=== PATIENT | male | born 1970 | race African-American/Black ===

== ENCOUNTER 2022-06-09 07:53 | Emergency (ER) | payer MEDICAID ==
[~2022-06-09] VITALS: Ht 162.6 cm; Wt 57.0 kg
[2022-06-09 08:05] VITALS: BP 160/75
[2022-06-09] MEDS ORDERED: CEFTRIAXONE SODIUM 1 G/VIAL IM ONE (09:00)
[2022-06-09] MEDS ORDERED: DOXY100T2 PO (09:00)
[2022-06-09] MEDS ORDERED: DOXYCYCLINE HYCLATE 100MG CAPSULE PO ONE (09:00)
[2022-06-12 04:07] LABS: NEISSERIA GONORRHOEAE NAA Positive (Negative)
== END 2022-06-09 09:30 | disposition home or self-care (01) ==
LOC: ER 07:53
DX: A54.01 Gonococcal cystitis and urethritis, unspecified (principal)
CPT/HCPCS: 87491; 87591; 96372; 99283; J0696

== ENCOUNTER 2022-08-22 19:14 | Emergency (ER) | payer MEDICAID ==
[~2022-08-22] VITALS: Ht 162.6 cm; Wt 57.0 kg
[~2022-08-22 19:14] MED LIST: DOXY100T2 PO
[2022-08-22] MEDS ORDERED: IBUP-2029 MT (23:26)
[2022-08-23 00:01] VITALS: BP 137/81
== END 2022-08-23 00:02 | disposition home or self-care (01) ==
LOC: ER 19:35
DX: M25.512 Pain in left shoulder (principal); J45.909 Unspecified asthma, uncomplicated
CPT/HCPCS: 73030; 99283

== ENCOUNTER 2022-09-15 17:49 | Emergency (ER) | payer MEDICAID ==
[~2022-09-15] VITALS: Ht 154.9 cm; Wt 59.0 kg
[~2022-09-15 17:49] MED LIST changes: +IBUP-2029 MT
[2022-09-15 17:54] VITALS: BP 158/98
[2022-09-15] MEDS ORDERED: IBUP-2029 MT (20:22)
== END 2022-09-16 00:26 | disposition home or self-care (01) ==
LOC: ER 18:37
DX: M25.512 Pain in left shoulder (principal); G89.29 Other chronic pain; F10.229 Alcohol dependence with intoxication, unspecified; Y90.0 Blood alcohol level of less than 20 mg/100 ml; J45.909 Unspecified asthma, uncomplicated
CPT/HCPCS: 99281

== ENCOUNTER 2023-01-13 21:36 | Emergency (ER) | payer MEDICAID ==
[~2023-01-13] VITALS: Ht 160 cm; Wt 61.5 kg
[2023-01-14 00:48] LABS: CHLORIDE 110 mEq/L (98-107)
[2023-01-14 00:57] LABS: ETHANOL BLOOD 224 mg/dL
[2023-01-14 01:01] LABS: CLARITY URINE CLEAR (CLEAR); COLOR URINE YELLOW (YELLOW); KETONES URINE TRACE (NEGATIVE); LEUKOCYTE ESTERASE URINE NEGATIVE (NEGATIVE); NITRITE URINE NEGATIVE (NEGATIVE); OCCULT BLOOD URINE TRACE (NEGATIVE); PH URINE 5.5 (4.5-8.0); PROTEIN URINE NEGATIVE (NEGATIVE); SPECIFIC GRAVITY URINE 1.011 (1.005-1.030); UROBILINOGEN URINE 0.2 E.U./dL (0.2-1.0)
[2023-01-14 01:13] LABS: *AMPHETAMINES SCREEN URINE NEGATIVE (NEGATIVE); *BARBITURATES SCREEN URINE NEGATIVE (NEGATIVE); *BENZODIAZEPINES SCREEN URINE NEGATIVE (NEGATIVE); *COCAINE SCREEN URINE NEGATIVE (NEGATIVE); CANNABINOID URINE SCREEN PRESUMTIVE POSITIVE (NEGATIVE); METHADONE URINE SCREEN NEGATIVE (NEGATIVE); OPIATES URINE SCREEN NEGATIVE (NEGATIVE); PHENCYCLIDINE URINE SCREEN NEGATIVE (NEGATIVE)
[2023-01-14 01:17] LABS: BASOPHILS % 0.5 % (0.0-2.0); HEMATOCRIT. 42.3 % (42.0-52.0); LYMPHOCYTES % 34.7 % (20.0-50.0); MEAN CORPUSCULAR HEMOGLOBIN 32.6 pg (28.0-32.0); MEAN CORPUSCULAR VOLUME 91.6 fL (80.0-94.0); MEAN PLATELET VOLUME 9.6 fl (7.4-10.4); MONOCYTES % 9.8 % (2.0-8.0); PLATELET 221 x1000/uL (130-400); RED BLOOD CELL COUNT 4.61 mill/uL (4.7-6.1); RED CELL DISTRIBUTION WIDTH 13.6 % (11.6-14.6)
[2023-01-14] MEDS ORDERED: NAPR-681 PO (03:40)
[2023-01-14 04:46] VITALS: BP 139/89
== END 2023-01-14 05:06 | disposition home or self-care (01) ==
LOC: ER 21:36
DX: F10.129 Alcohol abuse with intoxication, unspecified (principal); F12.10 Cannabis abuse, uncomplicated; M79.10 Myalgia, unspecified site; D17.9 Benign lipomatous neoplasm, unspecified; Y90.0 Blood alcohol level of less than 20 mg/100 ml
CPT/HCPCS: 36415; 70450; 80053; 80305; 80320; 81003; 85025; 99284; Z7610; G0480

== ENCOUNTER 2023-03-01 17:03 | Emergency (ER) | payer MEDICAID ==
[~2023-03-01] VITALS: Ht 160 cm; Wt 61.4 kg
[~2023-03-01 17:03] MED LIST changes: +NAPR-681 PO
[2023-03-01 17:15] VITALS: BP 181/109
[2023-03-01 18:07] LABS: BASOPHILS % 0.3 % (0.0-2.0); EOSINOPHILS % 1.5 % (0.0-5.0); HEMATOCRIT. 45.3 % (42.0-52.0); LYMPHOCYTES % 27.9 % (20.0-50.0); MEAN CORPUSCULAR HEMOGLOBIN 32.8 pg (28.0-32.0); MEAN CORPUSCULAR VOLUME 92.6 fL (80.0-94.0); MEAN PLATELET VOLUME 9.7 fl (7.4-10.4); MONOCYTES % 11.8 % (2.0-8.0); NEUTROPHILS % 58.5 % (40.0-76.0); PLATELET 165 x1000/uL (130-400); RED BLOOD CELL COUNT 4.89 mill/uL (4.7-6.1); RED CELL DISTRIBUTION WIDTH 13.8 % (11.6-14.6)
[2023-03-01 18:16] LABS: CHLORIDE 105 mEq/L (98-107)
[2023-03-01 22:49] LABS: CLARITY URINE CLEAR (CLEAR); COLOR URINE YELLOW (YELLOW); KETONES URINE NEGATIVE (NEGATIVE); LEUKOCYTE ESTERASE URINE NEGATIVE (NEGATIVE); NITRITE URINE NEGATIVE (NEGATIVE); OCCULT BLOOD URINE 1+ (NEGATIVE); PROTEIN URINE NEGATIVE (NEGATIVE); SPECIFIC GRAVITY URINE 1.004 (1.005-1.030); UROBILINOGEN URINE 0.2 E.U./dL (0.2-1.0)
[2023-03-01] MEDS ORDERED: DICYCLOMINE 10 MG/5 ML ORAL SYR PO STA (23:05)
[2023-03-01] MEDS ORDERED: VISCOUS LIDOCAINE 2% 15 ML UDC PO STA (23:05)
[2023-03-01] MEDS ORDERED: MAGNESIUM/ALUMINUM HYDROXIDE/SIMETHICONE 30ML UDC PO STA (23:05)
[2023-03-01] MEDS ORDERED: OMEP40CA20 MT (23:12)
== END 2023-03-01 23:29 | disposition home or self-care (01) ==
LOC: ER 17:03
DX: R10.9 Unspecified abdominal pain (principal); I10 Essential (primary) hypertension; J45.909 Unspecified asthma, uncomplicated
CPT/HCPCS: 36415; 80053; 81003; 84484; 85025; 93005; 99284

== ENCOUNTER 2023-03-21 05:27 | Emergency (ER) | payer MEDICAID ==
[~2023-03-21] VITALS: Ht 160 cm; Wt 54.5 kg
[~2023-03-21 05:27] MED LIST changes: +OMEP40CA20 MT
[2023-03-21 05:38] VITALS: BP 125/1; PULSE 98; RESP 16; TEMP 98.6; O2SAT 98
[2023-03-21] MEDS ORDERED: IBUP-2029 MT (09:20)
== END 2023-03-21 06:25 | disposition left against medical advice (07) ==
LOC: ER 05:27
DX: Z53.21 Procedure and treatment not carried out due to patient leaving prior to being seen by health care provider (principal)
CPT/HCPCS: 99281

== ENCOUNTER 2023-03-21 07:20 | Emergency (ER) | payer MEDICAID ==
[~2023-03-21] VITALS: Ht 160 cm; Wt 54.0 kg
[2023-03-21 07:36] VITALS: TEMP 98.5
[2023-03-21] MEDS ORDERED: IBUP-2029 MT (09:20)
[2023-03-21 09:30] VITALS: BP 125/42; PULSE 98; RESP 16
[2023-03-21] MEDS ORDERED: KETOROLAC 30MG/ML VIAL IM ONE (09:30)
== END 2023-03-21 10:26 | disposition home or self-care (01) ==
LOC: ER 07:20
DX: S43.402A Unspecified sprain of left shoulder joint, initial encounter (principal); J45.909 Unspecified asthma, uncomplicated; I10 Essential (primary) hypertension; X58.XXXA Exposure to other specified factors, initial encounter; Y93.89 Activity, other specified; Y92.89 Other specified places as the place of occurrence of the external cause; Y99.8 Other external cause status
CPT/HCPCS: 99283; 73030; 96372; J1885

== ENCOUNTER 2023-05-18 12:47 | Emergency (ER) | payer MEDICAID ==
[~2023-05-18] VITALS: Ht 170.2 cm; Wt 68.0 kg
[2023-05-18 12:50] VITALS: O2SAT 96
[2023-05-18] MEDS ORDERED: KETOROLAC 30MG/ML VIAL IM ONE (13:00)
[2023-05-18 13:33] LABS: BASOPHILS % 0.5 % (0.0-2.0); HEMATOCRIT. 49.4 % (42.0-52.0); HEMOGLOBIN. 17.5 g/dL (14.0-18.0); LYMPHOCYTES % 30.8 % (20.0-50.0); MEAN CORPUSCULAR HEMOGLOBIN 32.4 pg (28.0-32.0); MEAN CORPUSCULAR HGB CONC 35.4 g/dL (31.0-37.0); MEAN CORPUSCULAR VOLUME 91.6 fL (80.0-94.0); MEAN PLATELET VOLUME 9.5 fl (7.4-10.4); MONOCYTES % 8.9 % (2.0-8.0); NEUTROPHILS % 57.8 % (40.0-76.0); PLATELET 230 x1000/uL (130-400); RED BLOOD CELL COUNT 5.39 mill/uL (4.7-6.1); RED CELL DISTRIBUTION WIDTH 13.3 % (11.6-14.6); WHITE BLOOD COUNT 7.1 x1000/uL (4.5-11.0)
[2023-05-18 13:41] LABS: CHLORIDE 103 mEq/L (98-107); INDEX HEMOLYSI 1 (1-3); INDEX ICTERIC 1 (1-4); INDEX LIPEMIC 1 (1-3); POTASSIUM 3.5 mEq/L (3.5-5.1); SODIUM 139 mEq/L (136-145)
[2023-05-18 13:53] LABS: ALANINE AMINOTRANSFERASE 54 IU/L (13-61); ALBUMIN 3.8 g/dL (3.4-5.0); ASPARTATE AMINOTRANSFERASE 45 IU/L (15-37); BILIRUBIN TOTAL 0.8 mg/dL (0.1-1.0); CARBON DIOXIDE 25 mEq/L (21-32); CREATININE 1.2 mg/dL (0.6-1.3); ETHANOL BLOOD 234 mg/dL (-10); GLUCOSE 186 mg/dL (70-105); NT PRO B-TYPE NATRIURETIC PEP 76 pg/mL (5-125); PROTEIN TOTAL 8.2 g/dL (6.0-8.3); UREA NITROGEN BLOOD 11 mg/dL (7-21)
[2023-05-18 14:13] LABS: TROPONIN I HIGH SENSITIVITY 10 ng/L (<78)
[2023-05-18] MEDS ORDERED: OMEP40CA20 MT (14:19)
[2023-05-18 14:44] VITALS: BP 144/87; PULSE 198; RESP 16; TEMP 97.5
== END 2023-05-18 14:44 | disposition home or self-care (01) ==
LOC: ER 12:47
DX: K85.20 Alcohol induced acute pancreatitis without necrosis or infection (principal); I10 Essential (primary) hypertension; J45.909 Unspecified asthma, uncomplicated
CPT/HCPCS: 80053; 80320 ×2; 83880; 83690; 85025; 84484; 36415; 71045; 93005; 96372; 99285; J1885; G0480

== ENCOUNTER 2023-11-08 22:11 | Emergency (ER) | payer MEDICAID ==
[~2023-11-08] VITALS: Ht 160 cm; Wt 56.6 kg
[~2023-11-08 22:11] MED LIST changes: -DOXY100T2 PO; -IBUP-2029 MT; +LEVO-65 MT; -NAPR-681 PO
[2023-11-08 22:27] VITALS: BP 162/112; PULSE 112; RESP 16; TEMP 98.5; O2SAT 100
[2023-11-08 23:05] LABS: CLARITY URINE CLEAR (CLEAR); COLOR URINE YELLOW (YELLOW); GLUCOSE URINE NEGATIVE (NEGATIVE); KETONES URINE NEGATIVE (NEGATIVE); LEUKOCYTE ESTERASE URINE NEGATIVE (NEGATIVE); NITRITE URINE NEGATIVE (NEGATIVE); OCCULT BLOOD URINE TRACE (NEGATIVE); PH URINE 5.5 (4.5-8.0); PROTEIN URINE NEGATIVE (NEGATIVE); SPECIFIC GRAVITY URINE 1.005 (1.005-1.030); UROBILINOGEN URINE 0.2 E.U./dL (0.2-1.0)
[2023-11-08 23:10] LABS: BASOPHILS % 0.5 % (0.0-2.0); EOSINOPHILS % 2.3 % (0.0-5.0); HEMATOCRIT. 44.8 % (42.0-52.0); HEMOGLOBIN. 15.9 g/dL (14.0-18.0); LYMPHOCYTES % 30.1 % (20.0-50.0); MEAN CORPUSCULAR HEMOGLOBIN 32.3 pg (28.0-32.0); MEAN CORPUSCULAR HGB CONC 35.4 g/dL (31.0-37.0); MEAN CORPUSCULAR VOLUME 91.2 fL (80.0-94.0); MEAN PLATELET VOLUME 9.1 fl (7.4-10.4); MONOCYTES % 9.7 % (2.0-8.0); NEUTROPHILS % 57.4 % (40.0-76.0); PLATELET 214 x1000/uL (130-400); RED BLOOD CELL COUNT 4.92 mill/uL (4.7-6.1); RED CELL DISTRIBUTION WIDTH 13.1 % (11.6-14.6); WHITE BLOOD COUNT 9.6 x1000/uL (4.5-11.0)
[2023-11-08 23:27] LABS: ALANINE AMINOTRANSFERASE 47 IU/L (10-49); ALBUMIN 4.8 g/dL (3.2-4.8); ASPARTATE AMINOTRANSFERASE 52 IU/L (<34); BILIRUBIN TOTAL 0.7 mg/dL (0.1-1.0); CALCIUM 9.1 mg/dL (8.7-10.4); CARBON DIOXIDE 22 mEq/L (21-32); CHLORIDE 103 mEq/L (98-107); GLUCOSE 94 mg/dL (70-105); POTASSIUM 4.2 mEq/L (3.5-5.1); SODIUM 138 mEq/L (136-145); TROPONIN I HIGH SENSITIVITY 12 ng/L (3.0-53); UREA NITROGEN BLOOD 8 mg/dL (9-23)
[2023-11-08 23:28] LABS: BACTERIA URINE TRACE; RBC URINE 0-2 /hpf (0-2); SQUAMOUS EPITHELIAL CELL URINE RARE /lpf (RARE/1+); WBC URINE 0-2 /hpf (0-2)
[2023-11-09] MEDS: FAMOTIDINE 20MG TABLET PO ONE (00:42)
[2023-11-09] MEDS: KETOROLAC 30MG/ML VIAL IM ONE (00:42)
[2023-11-09] MEDS ORDERED: FAMO-135 MT (00:57)
== END 2023-11-09 01:23 | disposition home or self-care (01) ==
LOC: ER 22:11
DX: R07.89 Other chest pain (principal); R10.13 Epigastric pain; F10.20 Alcohol dependence, uncomplicated; I10 Essential (primary) hypertension; Y90.8 Blood alcohol level of 240 mg/100 ml or more
CPT/HCPCS: 80053; 81003; 80320; 83690; 85025; 84484; 36415; 71045; 93005; 99285; 96372; J1885; G0480

== ENCOUNTER 2023-12-12 05:15 | Emergency (ER) | payer MEDICAID ==
[~2023-12-12] VITALS: Ht 160 cm; Wt 59.0 kg
[~2023-12-12 05:15] MED LIST changes: +FAMO-135 MT
[2023-12-12 06:01] VITALS: O2SAT 96
[2023-12-12] MEDS ORDERED: DIPH25CA83 MT (06:36)
[2023-12-12] MEDS ORDERED: HYDR28.485 RC (06:36)
[2023-12-12 06:55] VITALS: BP 159/77; PULSE 73; RESP 18; TEMP 98.1
== END 2023-12-12 06:56 | disposition home or self-care (01) ==
LOC: ER 05:15
DX: R21 Rash and other nonspecific skin eruption (principal)
CPT/HCPCS: 99282

== ENCOUNTER 2024-01-28 04:11 | Emergency (ER) | payer MEDICAID ==
[~2024-01-28] VITALS: Ht 170.2 cm; Wt 65.0 kg
[~2024-01-28 04:11] MED LIST changes: +DIPH25CA83 MT; +HYDR28.485 RC
[2024-01-28] MEDS ORDERED: MORPHINE SULFATE 4 MG/ML INJ (FOR IV/IM USE) IM STA (04:16)
[2024-01-28] MEDS ORDERED: ONDANSETRON 4MG ODT PO STA (04:16)
[2024-01-28 04:25] VITALS: BP 134/87; PULSE 98; RESP 16; TEMP 98; O2SAT 98
[2024-01-28 04:35] LABS: CHLORIDE 104 mEq/L (98-107); POTASSIUM 3.6 mEq/L (3.5-5.1); SODIUM 139 mEq/L (136-145)
[2024-01-28 04:36] LABS: CARBON DIOXIDE 26 mEq/L (21-32)
[2024-01-28 04:41] LABS: CREATININE 0.8 mg/dL (0.6-1.3); GLUCOSE 115 mg/dL (70-105); UREA NITROGEN BLOOD 7 mg/dL (9-23)
[2024-01-28 04:44] LABS: INR 0.9; PROTHROMBIN TIME 10.4 sec (9.6-11.0)
[2024-01-28 05:03] LABS: BASOPHILS % 0.4 % (0.0-2.0); EOSINOPHILS % 0.3 % (0.0-5.0); HEMATOCRIT. 45.8 % (42.0-52.0); LYMPHOCYTES % 7.9 % (20.0-50.0); MEAN CORPUSCULAR HEMOGLOBIN 31.8 pg (28.0-32.0); MEAN CORPUSCULAR VOLUME 90.8 fL (80.0-94.0); MEAN PLATELET VOLUME 9.7 fl (7.4-10.4); MONOCYTES % 8.1 % (2.0-8.0); NEUTROPHILS % 83.3 % (40.0-76.0); PLATELET 262 x1000/uL (130-400); RED BLOOD CELL COUNT 5.04 mill/uL (4.7-6.1); RED CELL DISTRIBUTION WIDTH 13.8 % (11.6-14.6); WHITE BLOOD COUNT 14.2 x1000/uL (4.5-11.0)
[2024-01-28] MEDS ORDERED: MORPHINE SULFATE 4 MG/ML INJ (FOR IV/IM USE) IV ONE (05:15)
[2024-01-28] MEDS ORDERED: KETOROLAC 15MG/ML VIAL IV ONE (05:15)
[2024-01-28] MEDS ORDERED: SODIUM CHLORIDE 0.9% 1,000 ML IV ONE (05:15)
[2024-01-31] MEDS ORDERED: AMLO10TA80 MT (17:33)
== END 2024-01-28 05:42 | disposition left against medical advice (07) ==
LOC: ER 04:11 → EDBEDREQ 05:22 → ER 05:42
DX: R11.2 Nausea with vomiting, unspecified (principal); F12.10 Cannabis abuse, uncomplicated
CPT/HCPCS: 99284; 76705; 80048; 83690; 85025; 85610; 36415; J7030

== ENCOUNTER 2024-03-10 20:45 | Emergency (ER) | payer MEDICAID ==
[~2024-03-10] VITALS: Ht 160 cm; Wt 54.0 kg
[~2024-03-10 20:45] MED LIST changes: +AMLO10TA80 MT; -LEVO-65 MT
[2024-03-10 20:56] VITALS: BP 175/94; PULSE 96; RESP 14; TEMP 97.8; O2SAT 94
[2024-03-10] MEDS ORDERED: IBUP-2028 MT (22:26)
== END 2024-03-10 22:30 | disposition home or self-care (01) ==
LOC: ER 20:45
DX: M79.605 Pain in left leg (principal); I10 Essential (primary) hypertension
CPT/HCPCS: 73562; 73590; 99284; Z7610

== ENCOUNTER 2025-01-07 16:19 | Inpatient (IN) | payer MEDICAID ==
[~2025-01-07] VITALS: Ht 160 cm; Wt 58.1 kg
[2025-01-07] MEDS: SODIUM CHLORIDE 0.9% 1,000 ML IV ONE (16:59)
[2025-01-07] MEDS: FAMOTIDINE 20MG/2ML VIAL IV STA (16:59)
[2025-01-07] MEDS: ONDANSETRON HCL 4MG/2ML INJ IV STA (16:59)
[2025-01-07] MEDS: MORPHINE SULFATE 4 MG/ML INJ (FOR IV/IM USE) IV STA (16:59)
[2025-01-07 17:12] LABS: BASOPHILS % 0.3 % (0.0-2.0); DIFFERENTIAL COMMENT 0; EOSINOPHILS % 0.4 % (0.0-5.0); HEMATOCRIT. 48.7 % (42.0-52.0); HEMOGLOBIN. 17.5 g/dL (14.0-18.0); LYMPHOCYTES % 8.9 % (20.0-50.0); MEAN CORPUSCULAR HEMOGLOBIN 32.1 pg (28.0-32.0); MEAN CORPUSCULAR HGB CONC 35.9 g/dL (31.0-37.0); MEAN CORPUSCULAR VOLUME 89.5 fL (80.0-94.0); MEAN PLATELET VOLUME 9.6 fl (7.4-10.4); MONOCYTES % 8.8 % (2.0-8.0); NEUTROPHILS % 81.6 % (40.0-76.0); PLATELET 259 x1000/uL (130-400); RED BLOOD CELL COUNT 5.44 mill/uL (4.7-6.1); RED CELL DISTRIBUTION WIDTH 13.6 % (11.6-14.6); WHITE BLOOD COUNT 15.7 x1000/uL (4.5-11.0)
[2025-01-07 17:17] LABS: CHLORIDE 103 mEq/L (98-107); POTASSIUM 4.7 mEq/L (3.5-5.1); SODIUM 138 mEq/L (136-145)
[2025-01-07 17:18] LABS: CALCIUM 10.3 mg/dL (8.7-10.4); CARBON DIOXIDE 25 mEq/L (21-32)
[2025-01-07 17:23] LABS: CREATININE 0.8 mg/dL (0.6-1.3); GLUCOSE 121 mg/dL (70-105); INR 0.9
[2025-01-07 17:24] LABS: ETHANOL BLOOD < 10 mg/dL (<10); UREA NITROGEN BLOOD 17 mg/dL (9-23)
[2025-01-07 17:25] LABS: ALANINE AMINOTRANSFERASE 13 IU/L (10-49); ALBUMIN 4.7 g/dL (3.2-4.8); ASPARTATE AMINOTRANSFERASE 25 IU/L (<34); BILIRUBIN DIRECT 0.3 mg/dL (<=3.0); TROPONIN I HIGH SENSITIVITY 6 ng/L (3.0-53)
[2025-01-07 17:26] LABS: PROTEIN TOTAL 8.3 g/dL (6.0-8.3)
[2025-01-07] MEDS: MORPHINE SULFATE 4 MG/ML INJ (FOR IV/IM USE) IV NR (19:11)
[2025-01-07] MEDS: LABETALOL 5MG/ML 4ML INJ IV ONE (19:11)
[2025-01-07 21:54] LABS: CLARITY URINE CLEAR (CLEAR); COLOR URINE DARK YELLOW (YELLOW); GLUCOSE URINE NEGATIVE (NEGATIVE); KETONES URINE 1+ (NEGATIVE); LEUKOCYTE ESTERASE URINE NEGATIVE (NEGATIVE); NITRITE URINE NEGATIVE (NEGATIVE); OCCULT BLOOD URINE 2+ (NEGATIVE); PROTEIN URINE 2+ (NEGATIVE); SPECIFIC GRAVITY URINE 1.031 (1.005-1.030)
[2025-01-07 22:08] LABS: BACTERIA URINE TRACE; SQUAMOUS EPITHELIAL CELL URINE RARE /lpf (RARE/1+); WBC URINE 0-2 /hpf (0-2)
[2025-01-07 23:05] VITALS: BP 179/87; PULSE 60; RESP 17; TEMP 36.8
[2025-01-07 23:33] VITALS: BP 179/87; PULSE 60; RESP 18; TEMP 36.8; O2SAT 95
[2025-01-08] VITALS: BP 191/95; PULSE 56; RESP 18; TEMP 36.2; O2SAT 94
[2025-01-08] MEDS: LACTATED RINGERS 1,000 ML IV SCH (00:15)
[2025-01-08] MEDS ORDERED: ONDANSETRON HCL 4MG/2ML INJ IV PRN (00:15)
[2025-01-08 04:00] VITALS: BP 164/77; PULSE 56; RESP 20; TEMP 36; O2SAT 96
[2025-01-08] MEDS: MORPHINE SULFATE 2 MG/ML INJ (NOT FOR IM USE) IV PRN (06:24)
[2025-01-08] MEDS: MEROPENEM 1G/100ML 100 ML IV SCH (06:43)
[2025-01-08 08:00] VITALS: BP 173/79; PULSE 68; RESP 18; TEMP 36.6; O2SAT 96
[2025-01-08] MEDS: PANTOPRAZOLE SODIUM 40 MG/VIAL IV SCH (10:14)
[2025-01-08] MEDS: ENOXAPARIN 40MG/0.4ML SYR SUBCUT SCH (10:14)
[2025-01-08] MEDS ORDERED: NALOXONE HCL 0.4MG/ML VIAL IV PRN (11:15)
[2025-01-08] MEDS: AMLODIPINE 10MG TABLET PO SCH (11:41)
[2025-01-08 12:00] VITALS: BP_SYST 180; BP_SYST 184; BP_DIAS 100; PULSE 55; RESP 16; TEMP 36.6; O2SAT 96
[2025-01-08] MEDS: CLONIDINE 0.1MG TABLET PO PRN (12:53)
[2025-01-08 16:00] VITALS: BP 160/88; PULSE 66; RESP 16; TEMP 36.9; O2SAT 96
[2025-01-08 20:00] VITALS: BP 159/76; PULSE 62; RESP 18; TEMP 36.3; O2SAT 95
[2025-01-08] MEDS: DOCUSATE SODIUM 100MG CAPSULE PO SCH (22:43)
[2025-01-08] MEDS: SENNOSIDES 8.6MG TABLET PO SCH (22:43)
[2025-01-08 23:59] LABS: BASOPHILS % 0.9 % (0.0-2.0); DIFFERENTIAL COMMENT 0; EOSINOPHILS % 1.8 % (0.0-5.0); HEMATOCRIT. 41.8 % (42.0-52.0); LYMPHOCYTES % 20.6 % (20.0-50.0); MEAN CORPUSCULAR HEMOGLOBIN 32.2 pg (28.0-32.0); MEAN CORPUSCULAR HGB CONC 35.9 g/dL (31.0-37.0); MEAN CORPUSCULAR VOLUME 89.7 fL (80.0-94.0); MEAN PLATELET VOLUME 9.4 fl (7.4-10.4); MONOCYTES % 10.9 % (2.0-8.0); NEUTROPHILS % 65.8 % (40.0-76.0); PLATELET 228 x1000/uL (130-400); RED BLOOD CELL COUNT 4.65 mill/uL (4.7-6.1); RED CELL DISTRIBUTION WIDTH 13.3 % (11.6-14.6); WHITE BLOOD COUNT 9.9 x1000/uL (4.5-11.0)
[2025-01-09] VITALS: BP 160/85; PULSE 56; RESP 18; TEMP 36.3; O2SAT 96
[2025-01-09 04:00] VITALS: BP 160/85; PULSE 56; RESP 18; TEMP 36.5; O2SAT 96
[2025-01-09] MEDS ORDERED: AMLO10TA80 PO (04:32)
[2025-01-09 06:30] LABS: BASOPHILS % 0.3 % (0.0-2.0); EOSINOPHILS % 2.3 % (0.0-5.0); HEMATOCRIT. 43.7 % (42.0-52.0); HEMOGLOBIN. 15.1 g/dL (14.0-18.0); LYMPHOCYTES % 20.3 % (20.0-50.0); MEAN CORPUSCULAR HEMOGLOBIN 31.3 pg (28.0-32.0); MEAN CORPUSCULAR HGB CONC 34.5 g/dL (31.0-37.0); MEAN CORPUSCULAR VOLUME 90.7 fL (80.0-94.0); MEAN PLATELET VOLUME 9.6 fl (7.4-10.4); MONOCYTES % 11.3 % (2.0-8.0); NEUTROPHILS % 65.8 % (40.0-76.0); PLATELET 228 x1000/uL (130-400); RED BLOOD CELL COUNT 4.81 mill/uL (4.7-6.1); RED CELL DISTRIBUTION WIDTH 13.3 % (11.6-14.6); WHITE BLOOD COUNT 9.2 x1000/uL (4.5-11.0)
[2025-01-09 06:43] LABS: CARBON DIOXIDE 25 mEq/L (21-32); CHLORIDE 104 mEq/L (98-107); POTASSIUM 3.8 mEq/L (3.5-5.1); SODIUM 138 mEq/L (136-145)
[2025-01-09 06:44] LABS: CALCIUM 9.2 mg/dL (8.7-10.4)
[2025-01-09 06:48] LABS: CREATININE 0.7 mg/dL (0.6-1.3); GLUCOSE 100 mg/dL (70-105); TRIGLYCERIDE 197 mg/dL (0-150)
[2025-01-09 06:49] LABS: LDL CHOLESTEROL 90 mg/dL (5-100); UREA NITROGEN BLOOD 14 mg/dL (9-23)
[2025-01-09 06:50] LABS: ALANINE AMINOTRANSFERASE 12 IU/L (10-49); AMYLASE 163 IU/L (30-118); ASPARTATE AMINOTRANSFERASE 17 IU/L (<34)
[2025-01-09 06:51] LABS: BILIRUBIN TOTAL 1.2 mg/dL (0.1-1.0); CHOLESTEROL 166 mg/dL (<200); HDL CHOLESTEROL 36 mg/dL (>55); PROTEIN TOTAL 7.2 g/dL (6.0-8.3)
[2025-01-09 07:04] LABS: HEPATITIS B SURFACE ANTIGEN NEGATIVE (Negative)
[2025-01-09 07:25] LABS: HEPATITIS A AB IGM NEGATIVE (Negative)
[2025-01-09 07:26] LABS: HEPATITIS B CORE AB IGM NEGATIVE (Negative); HEPATITIS C AB NON REACTIVE (Neg) (Negative)
[2025-01-09 08:00] VITALS: BP 139/84; PULSE 53; RESP 18; TEMP 36.4; O2SAT 98
[2025-01-09 12:00] VITALS: BP 183/92; PULSE 65; RESP 18; TEMP 36.6; O2SAT 98
[2025-01-09 16:00] VITALS: BP 166/87; PULSE 75; RESP 20; TEMP 36.7; O2SAT 95
[2025-01-09] MEDS: POLYETHYLENE GLYCOL 3350 (17GM) 1 DOSE PACK PO NR (17:20)
[2025-01-09 20:00] VITALS: BP 154/78; PULSE 69; RESP 16; TEMP 36.4; O2SAT 97
[2025-01-10] VITALS: BP 165/88; PULSE 58; RESP 18; TEMP 37.2; O2SAT 96
[2025-01-10 05:00] VITALS: BP 164/90; PULSE 59; RESP 17; TEMP 36.3; O2SAT 98
[2025-01-10 07:26] LABS: BASOPHILS % 0.3 % (0.0-2.0); DIFFERENTIAL COMMENT 0; EOSINOPHILS % 1.8 % (0.0-5.0); HEMATOCRIT. 41.6 % (42.0-52.0); HEMOGLOBIN. 14.9 g/dL (14.0-18.0); LYMPHOCYTES % 18.7 % (20.0-50.0); MEAN CORPUSCULAR HEMOGLOBIN 31.9 pg (28.0-32.0); MEAN CORPUSCULAR HGB CONC 35.8 g/dL (31.0-37.0); MEAN CORPUSCULAR VOLUME 89.1 fL (80.0-94.0); MONOCYTES % 10.5 % (2.0-8.0); NEUTROPHILS % 68.7 % (40.0-76.0); PLATELET 237 x1000/uL (130-400); RED BLOOD CELL COUNT 4.66 mill/uL (4.7-6.1); RED CELL DISTRIBUTION WIDTH 13.1 % (11.6-14.6); WHITE BLOOD COUNT 10.8 x1000/uL (4.5-11.0)
[2025-01-10 08:00] VITALS: BP 167/73; PULSE 58; RESP 18; TEMP 36.9; O2SAT 95
[2025-01-10 08:18] LABS: CHLORIDE 102 mEq/L (98-107); POTASSIUM 3.8 mEq/L (3.5-5.1); SODIUM 136 mEq/L (136-145)
[2025-01-10 08:20] LABS: CALCIUM 9.8 mg/dL (8.7-10.4); CARBON DIOXIDE 26 mEq/L (21-32)
[2025-01-10 08:25] LABS: CREATININE 0.8 mg/dL (0.6-1.3); GLUCOSE 109 mg/dL (70-105); UREA NITROGEN BLOOD 13 mg/dL (9-23)
[2025-01-10 08:26] LABS: AMYLASE 232 IU/L (30-118)
[2025-01-10 08:27] LABS: ALANINE AMINOTRANSFERASE 15 IU/L (10-49); ALBUMIN 3.9 g/dL (3.2-4.8); ASPARTATE AMINOTRANSFERASE 14 IU/L (<34); PROTEIN TOTAL 6.7 g/dL (6.0-8.3)
[2025-01-10] MEDS: POLYETHYLENE GLYCOL 3350 (17GM) 1 DOSE PACK PO SCH (10:59)
[2025-01-10 12:00] VITALS: BP 122/69; PULSE 64; RESP 18; TEMP 36.7; O2SAT 96
[2025-01-10 16:00] VITALS: BP 149/64; PULSE 69; RESP 18; TEMP 36.8; O2SAT 96
[2025-01-10 20:00] VITALS: BP 155/76; PULSE 64; RESP 17; TEMP 37; O2SAT 100
[2025-01-11] VITALS: BP 126/72; PULSE 57; RESP 16; TEMP 36.4; O2SAT 97
[2025-01-11 04:00] VITALS: BP 166/71; PULSE 57; RESP 17; TEMP 36.3; O2SAT 97
[2025-01-11 08:00] VITALS: BP 139/67; PULSE 50; RESP 18; TEMP 36.6; O2SAT 96
[2025-01-11 12:21] VITALS: BP 148/71; PULSE 61; TEMP 97.7; O2SAT 97
== END 2025-01-11 12:34 | disposition home or self-care (01) | DRG 282 ==
LOC: ER 16:19 → 5WST 20:15 → EDBEDREQ 20:18
PROVIDERS: ADMIT Family Medicine Adult Medicine; ATTEND Family Medicine Adult Medicine
DX: K85.20 Alcohol induced acute pancreatitis without necrosis or infection (principal); R65.10 Systemic inflammatory response syndrome (SIRS) of non-infectious origin without acute organ dysfunction; K76.0 Fatty (change of) liver, not elsewhere classified; K83.8 Other specified diseases of biliary tract; D18.03 Hemangioma of intra-abdominal structures; F10.20 Alcohol dependence, uncomplicated; I16.0 Hypertensive urgency; F17.210 Nicotine dependence, cigarettes, uncomplicated; I10 Essential (primary) hypertension; Y90.9 Presence of alcohol in blood, level not specified; J45.909 Unspecified asthma, uncomplicated; K86.1 Other chronic pancreatitis; K59.09 Other constipation; D72.821 Monocytosis (symptomatic)
CPT/HCPCS: 36415; 74176; 76705; 80048; 80053; 80061; 80076; 80320; 81003; 82040; 82150; 83036; 83605; 84145; 84478; 84484; 85025; 86705; 86709; 87340; 93970; 99285; A4606; J1650; J2185; J2270; J2405; J2470; J3490; J7030; J7120; G0480